=== PATIENT | male | born 1980 | race Native Hawaiian/Other Pacific Islander ===

== ENCOUNTER 2022-10-25 22:22 | Emergency (ER) | payer OTHER ==
[~2022-10-25] VITALS: Ht 171.4 cm; Wt 111.1 kg
[2022-10-25 23:05] LABS: PLATELET COUNT 201 K/uL (142-355)
[2022-10-25 23:27] LABS: PARTIAL THROMBOPLASTIN TIME 28.7 SECONDS (24.5-33.6)
[2022-10-26 00:25] VITALS: BP 150/80; TEMP 98.1
== END 2022-10-26 00:25 ==
LOC: ED 22:22
PROVIDERS: Emergency Medicine
DX: R31.9 Hematuria, unspecified (principal); R10.84 Generalized abdominal pain; G89.29 Other chronic pain; F41.8 Other specified anxiety disorders
CPT/HCPCS: 36415; 80053; 80307; 81000; 85027; 85610; 85730; 96374; 99284; J1885